=== PATIENT | male | born 1990 | race Caucasian/White ===

== ENCOUNTER 2017-10-19 08:21 | Emergency (ER) | payer BC ==
[2017-10-19 08:35] VITALS: BP 140/96
--- NOTE | 2017-10-19 08:51 | UC ---
Complaint Male HPI - HPI Summary HPI Summary: This is Kristi feldman, documenting for attending Marc Ramos M.D. Pt is a 27 y/o M who presents to [facility] c/o back pain and difficulty urinating. Pt reports that sx have been present since last Friday (6 days ago), worsening on Friday. Pain began as being located in the inguinal region and is now diffusely throughout the lumbar back and is in the umbilical region. Pain has been waxing and waning since onset, on triage, ranked 7/10 though while in room , it is ranked 5/10. Additionally c/o fatigue. Denies fever and testicular pain or discharge. Denies any other symptoms including sore throat. PMHx kidney stones and UTIs and pt reports current symptoms "feel like a urinary thing" and is similar to a UTI that has "made its way to my kidneys." Prior kidney stones have been diagnosed by Sánchez via CT. - History of Current Complaint Chief Complaint: UCGU Stated Complaint: URINARY COMPLAINT Time Seen by Provider: 10/19/17 08:41 Hx Obtained From: Patient Onset/Duration: Lasting Days - 6 days, Still Present Severity Currently: Moderate Pain Intensity: 7 Pain Scale Used: 0-10 Numeric Location: Other - Lumbar back and umbilical Aggravating Factor(s): Nothing Alleviating Factor(s): Nothing Associated Signs And Symptoms: Negative: Fever - Allergies/Home Medications Allergies/Adverse Reactions: Allergies Allergy/AdvReac Type Severity Reaction Status Date / Time No Known Allergies Allergy Verified 10/19/17 08:35 PMH/Surg Hx/FS Hx/Imm Hx - Additional Past Medical History Additional PMH: PMHx: Kidney stones, UTIs NEGATIVE PMHx: Irritable bowel, Crohn's GI/ History: Gastroesophageal Reflux - Surgical History Surgical History: None - Family History Known Family History: Positive: Hypertension Negative: Cardiac Disease, Diabetes - Social History Alcohol Use: None Substance Use Type: Marijuana Substance Use Comment - Amount & Last Used: marijuana Smoking Status (MU): Never Smoked Tobacco Review of Systems Constitutional: Fatigue Skin: Negative Eyes: Negative ENT: Negative Respiratory: Negative Cardiovascular: Negative Gastrointestinal: Abdominal Pain - Umbilical pain Genitourinary: Other - Difficulty urinating Motor: Negative Neurovascular: Negative Musculoskeletal: Other: - Back pain Neurological: Negative Psychological: Negative All Other Systems Reviewed And Are Negative: Yes - Comments Additional Review of Systems Comments: NEGATIVE: Fever and testicular pain or discharge, sore throat Physical Exam - Summary Physical Exam Summary: General: well-appearing, no pain distress Skin: warm, color reflects adequate perfusion, dry Head: normal Eyes: EOMI, [place] ENT: normal Neck: supple, nontender Respiratory: CTA, breath sounds present Cardiovascular: RRR Abdomen: soft, mild suprapubic tenderness to palpation Bowel: present Musculoskeletal: strength/ROM intact, mild bilateral flank tenderness to percussion Neurological: sensory/motor intact, A&O x3 Psychological: affect/mood appropriate Triage Information Reviewed: Yes Vital Signs: Initial Vital Signs Temp 99.7 F 10/19/17 08:32 Pulse 90 10/19/17 08:32 Resp 12 10/19/17 08:32 BP 140/96 10/19/17 08:32 Pulse Ox 97 10/19/17 08:32 Vital Signs Reviewed: Yes Complaint Male Course/Dx - Course Course Of Treatment: Medications reviewed. Allergies noted. DISCUSSED GOING TO THE ED FOR FURTHER EVALUATION TO INCLUDE IMAGING. THE PATIENT DECLINED. WILL TREAT FOR UTI. GONORRHEA/CHLAMYDIA PENDING. F/U PMD; RECHECK SOONER IF WORSE. - Differential Dx/Diagnosis Provider Diagnoses: UTI Discharge - Sign-Out/Discharge Documenting (check all that apply): Patient Departure - Discharge - Discharge Plan Condition: Stable Disposition: HOME Prescriptions: Sulfamethox/Trimethoprim DS* [Bactrim DS 800/160 TAB*] 1 tab PO BID #28 tab Patient Education Materials: Urinary Tract Infection in Men (ED) Referrals: [facility] [Provider Group] Additional Instructions: FOLLOW UP WITH YOUR DOCTOR. GO TO THE EMERGENCY DEPARTMENT FOR ANY WORSENING OF YOUR CONDITION; PAIN, FEVER , YOU FEEL ILL OR QUESTIONS OR CONCERNS. - Billing Disposition and Condition Condition: STABLE Disposition: Home
== END 2017-10-19 09:20 | disposition home or self-care (01) ==
LOC: UCEAST 08:21
DX: N39.0 Urinary tract infection, site not specified (principal)
CPT/HCPCS: 81003; 87086; 87491; 87591; 99202; G0463

== ENCOUNTER 2017-10-29 13:46 | Emergency (ER) | payer BC ==
[2017-10-29 13:56] VITALS: BP 142/88
--- NOTE | 2017-10-29 14:36 | ED ---
GI/ HPI - HPI Summary HPI Summary: 27-year-old male presents with bilateral flank pain for the past week. He states he has a history of kidney infections. He states he was seen here and placed on Bactrim. He has been taking it for the past 10 days and his pain seemed to be improving. The past couple days the pain has gotten worse. He has history kidney stones. Denies any penile discharge. He admits to lower abdominal pain greatest in the right side. He denies any chest pain shortness breath. Denies any testicular pain. He does not have a urologist currently. He has had STD cultures here and they were negative. He had urine culture last time which was negative for growth. - History of Current Complaint Chief Complaint: UCBackPain Time Seen by Provider: 10/29/17 14:24 Stated Complaint: LOWER BACK PAIN Pain Intensity: 5 - Allergy/Home Medications Allergies/Adverse Reactions: Allergies Allergy/AdvReac Type Severity Reaction Status Date / Time No Known Allergies Allergy Verified 10/29/17 13:59 Home Medications: Home Medications Sulfamethox/Trimethoprim DS* [Bactrim DS 800/160 TAB*] 1 tab PO DAILY 10/29/17 [ History Confirmed 10/29/17] PMH/Surg Hx/FS Hx/Imm Hx Endocrine/Hematology History: Denies: Hx Anticoagulant Therapy History: Reports: Hx Kidney Infection, Hx Kidney Stones Infectious Disease History: No Infectious Disease History: Denies: Traveled Outside the [place] in Last 30 Days - Family History Known Family History: Positive: Hypertension Negative: Cardiac Disease, Diabetes - Social History Alcohol Use: None Substance Use Type: Reports: Marijuana Substance Use Comment - Amount & Last Used: marijuana Smoking Status (MU): Never Smoked Tobacco Review of Systems Negative: Fever Negative: Chest Pain Negative: Shortness Of Breath Positive: Abdominal Pain. Negative: Vomiting, Nausea Positive: frequency, flank pain. Negative: dysuria All Other Systems Reviewed And Are Negative: Yes Physical Exam Triage Information Reviewed: Yes Vital Signs On Initial Exam: Initial Vitals Temp Pulse Resp BP Pulse Ox 98.0 F 103 15 142/88 100 10/29/17 13:50 10/29/17 13:50 10/29/17 13:50 10/29/17 13:50 10/29/17 13:50 Vital Signs Reviewed: Yes Appearance: Positive: Well-Appearing Skin: Positive: Warm, Dry Head/Face: Positive: Normal Head/Face Inspection Eyes: Positive: Normal, Conjunctiva Clear ENT: Positive: Pharynx normal Respiratory/Lung Sounds: Positive: Clear to Auscultation, Breath Sounds Present Cardiovascular: Positive: Normal, RRR Abdomen Description: Positive: Soft, CVA Tenderness (R), CVA Tenderness (L), Other: - tenderness lower abdomen Bowel Sounds: Positive: Present Musculoskeletal: Positive: Normal Neurological: Positive: Normal Psychiatric: Positive: Normal Diagnostics - Vital Signs Vital Signs Temp Pulse Resp BP Pulse Ox 10/29/17 13:50 98.0 F 103 15 142/88 100 - Laboratory Lab Results: Lab Results 10/29/17 Range/Units 14:08 POC Urine Color Yellow POC Urine Clarity Clear POC Urine pH 6.0 (5-9) POC Ur Specif [place] 1.015 (1.010-1.030) POC Urine Protein Negative (Negative) POC Ur Glucose (UA) Negative (Negative) POC Urine Ketones Negative (Negative) POC Urine Blood Negative (Negative) POC Urine Nitrite Negative (Negative) POC Urine Bilirubin Negative (Negative) POC Urine Urobilinogen 0.2 (Negative) POC U Leukocyte Esteras Negative (Negative) Lab Statement: Any lab studies that have been ordered have been reviewed, and results considered in the medical decision making process. - CT abd CT Interpretation: No Acute Changes CT Interpretation Completed By: Radiologist SAMY Course/Dx - Course Course Of Treatment: 27-year-old male presents with bilateral flank pain for the past week. He states he has a history of kidney infections. He states he was seen here and placed on Bactrim. He has been taking it for the past 10 days and his pain seemed to be improving. The past couple days the pain has gotten worse. He has history kidney stones. Denies any penile discharge. He admits to lower abdominal pain greatest in the right side. He denies any chest pain shortness breath. Denies any testicular pain. He does not have a urologist currently. He has had STD cultures here and they were negative. He had urine culture last time which was negative for growth. On exam has tenderness to bilateral flanks. Has tenderness in lower abdomen. Urine shows no infection. We'll get CT due to persistence of symptoms. CT shows no pathology. explained pain could be muscular. We'll try a muscle relaxer. will have est care with primary to follow up as blood pressure is elevated at this time. patient requesting a referral for urology. Patient understands agrees with plan. - Diagnoses Differential Diagnoses - Male: Pyelonephritis, Ureteral Calculi, Urinary Tract Infection Provider Diagnoses: Bilateral flank pain, Elevated blood pressure reading Discharge - Sign-Out/Discharge Documenting (check all that apply): Patient Departure - Discharge Plan Condition: Good Disposition: HOME Prescriptions: Cyclobenzaprine TAB* [Flexeril 10 MG TAB*] 10 mg PO TID PRN #21 tab PRN Reason: Pain Patient Education Materials: Flank Pain (ED) Referrals: [facility] [Outside] Akbar Montes De Oca MD [Medical Doctor] - Additional Instructions: Take muscle relaxers three times a day Use ibuprofen or Tylenol for pain every 6 hours ice/heat area, move as much as possible Establish care with primary a referral was given for urology Return to ED if develop any new or worsening symptoms - Billing Disposition and Condition Condition: GOOD Disposition: Home
--- NOTE | 2017-10-29 15:03 | RAD ---
INDICATION: Bilateral flank pain COMPARISON: None TECHNIQUE: Noncontrast axial source images were acquired from the level hemidiaphragms to the symphysis pubis as part of CT imaging for renal stone. Lung bases: The lung bases are clear. Liver: The liver is normal in size. Noncontrast imaging shows no evidence of a hepatic mass or ductal dilatation. Gallbladder: There are no calcified gallstones. There is no evidence of wall thickening or pericholecystic fluid.. Spleen: The spleen is normal in size. There are splenic granulomas. Pancreas: Noncontrast imaging shows no pancreatic mass or ductal dilitation. Adrenal glands: No masses are identified. Kidneys/Bladder: There is no evidence of nephrolithiasis or CT evidence of hydronephrosis. Noncontrast imaging shows no evidence of a renal mass. The bladder is unremarkable.. Adenopathy: There is no evidence of intraperitoneal or retroperitoneal adenopathy. Evaluation is limited without oral contrast. Fluid collections: There are no free or localized fluid collections. Vessels: The aorta and iliac vessels are normal in caliber. There are no significant atherosclerotic changes. The IVC appears normal Pelvic organs: The prostate and seminal vesicles appear normal GI tract: Evaluation of the bowel is limited without oral contrast. The stomach, small bowel, and lower GI tract appear grossly normal. There are no obstructive findings. The appendix is visualized and appears normal. Soft tissues: No soft tissue abnormalities of the extraperitoneal abdomen or pelvis are identified. Osseous structures: There are no acute osseous findings. IMPRESSION: NO CT EVIDENCE OF UROLITHIASIS. NO CT FINDING TO ACCOUNT FOR THE PATIENT'S SYMPTOMS.
== END 2017-10-29 15:20 | disposition home or self-care (01) ==
LOC: UCEAST 13:46
DX: R10.9 Unspecified abdominal pain (principal); R03.0 Elevated blood-pressure reading, without diagnosis of hypertension; Z87.442 Personal history of urinary calculi
CPT/HCPCS: 74176; 81003; 99212; G0463